=== PATIENT | female | born 1980 | race Caucasian/White ===

== ENCOUNTER 2017-09-20 12:03 | Emergency (ER) | payer OTHER | END 2017-09-20 12:47 | disposition home or self-care (01) | LOC: ERS 12:03 | DX: J02.9 Acute pharyngitis, unspecified (principal); G43.909 Migraine, unspecified, not intractable, without status migrainosus; F32.9 Major depressive disorder, single episode, unspecified | CPT/HCPCS: 87081; 87430; 99283 ==

== ENCOUNTER 2018-05-10 18:07 | Emergency (ER) | payer OTHER ==
[2018-05-10] MEDS ORDERED: Dexamethasone 10 MG/ML VIAL ONE (19:32)
[2018-05-10] MEDS ORDERED: Ketorolac Tromethamine 30 MG/ML VIAL ONE ×2 (19:32→19:36)
[2018-05-10] MEDS ORDERED: Acetaminophen 500 MG TAB ONE (19:32)
--- NOTE | 2018-05-10 19:49 | RAD ---
PORTABLE CHEST: 05/10/18 HISTORY: Shortness of breath and congestion. No comparison. The lungs are well aerated. There is some patchy density in the left lower lung which could potential ly represent mild infiltrate. This is poorly evaluated on this portable projection. The heart and mediastinum unremarkable. IMPRESSION: Question infiltrate in the left lower lung. Upright PA and lateral views of chest is recommended to e valuate for pneumonia. POS: [facility]
== END 2018-05-10 21:05 | disposition home or self-care (01) ==
LOC: ERS 18:07
DX: J02.9 Acute pharyngitis, unspecified (principal); J32.9 Chronic sinusitis, unspecified; F32.9 Major depressive disorder, single episode, unspecified
CPT/HCPCS: 71045; 87081; 87430; 96372; J1100; J1885

== ENCOUNTER 2024-07-14 11:59 | Outpatient (CLI) | payer BC | END 2024-07-14 12:00 | disposition home or self-care (01) | LOC: ULT 11:59 | PROVIDERS: ATTEND Physician Assistant Medical | DX: R74.8 Abnormal levels of other serum enzymes (principal); R93.2 Abnormal findings on diagnostic imaging of liver and biliary tract | CPT/HCPCS: 76705 ==

== ENCOUNTER 2024-11-04 07:58 | Outpatient (CLI) | payer BC ==
[2024-11-04] MEDS ORDERED: Iopamidol 370 76% 100 ML VIAL ONE (09:22)
== END 2024-11-04 07:59 | disposition home or self-care (01) ==
LOC: CT 07:58
PROVIDERS: ATTEND Physician Assistant Medical
DX: K21.9 Gastro-esophageal reflux disease without esophagitis (principal); K50.90 Crohn's disease, unspecified, without complications; R74.8 Abnormal levels of other serum enzymes; R11.2 Nausea with vomiting, unspecified; Z98.890 Other specified postprocedural states
CPT/HCPCS: 74178

== ENCOUNTER 2025-07-08 11:00 | Inpatient (IN) | payer BC ==
[2025-07-12] MEDS ORDERED: Acetaminophen 325 MG TAB ONE (11:48)
[2025-07-12] MEDS ORDERED: Heparin 5,000 UNITS/ML VIAL ONE (11:48)
[2025-07-12] MEDS ORDERED: metroNIDAZOLE 500 MG (100 mL) BAG ONE (11:49)
[2025-07-12] MEDS ORDERED: CEFAZOLIN 2 GM VIAL ONE (11:49)
[2025-07-12] MEDS ORDERED: PROPOFOL 40 ML ONE (13:02)
[2025-07-12] MEDS ORDERED: Rocuronium Bromide 10 MG/ML (10ML VIAL) ONE (13:04)
[2025-07-12] MEDS ORDERED: Lidocaine 1% PF 5 ML VIAL ONE (13:04)
[2025-07-12] MEDS ORDERED: fentaNYL PF 100 MCG/2 ML SYRINGE ONE ×2 (13:47→15:31)
[2025-07-12] MEDS ORDERED: SUGAMMADEX SODIUM 200 MG/2 ML VIAL ONE (14:38)
[2025-07-12] MEDS ORDERED: Ondansetron PF 4 MG/2 ML Vial ONE (15:00)
[2025-07-12] MEDS ORDERED: Ondansetron PF 4 MG/2 ML Vial IVP PRN (15:49)
[2025-07-12] MEDS ORDERED: hydrALAZINE 20 MG/ML VIAL SLOW IVP PRN (15:49)
[2025-07-12] MEDS ORDERED: Acetaminophen 325 MG TAB PO PRN (15:50)
[2025-07-12] MEDS ORDERED: HYDROcodone/Acetaminophen 5/325 mg Tablet PO PRN (15:52)
[2025-07-12] MEDS: Gabapentin 100 MG CAP PO SCH (21:43)
[2025-07-12] MEDS: HYDROcodone/Acetaminophen 5/325 mg Tablet PO PRN (21:44)
[2025-07-12 23:40] VITALS: BMI 44.0
[2025-07-13] MEDS: Ketorolac Tromethamine 30 MG (1 mL) VIAL IVP SCH (04:49)
[2025-07-13 04:54] LABS: #Basophils Less than 0.03 10x3/uL (0.0-0.2); #Eosinophils Less than 0.03 10x3/uL (0.0-0.7); #Monocytes 0.83 10x3/uL (0.11-0.59); #Neutrophils 8.96 10x3/uL (1.40-6.50); %Basophils 0.2 % (0.0-1.0); %Eosinophils 0.1 % (0.0-10.0); %Lymphocytes 16.6 % (21.0-51.0); %Monocytes 7.0 % (0.0-10.0); %Neutrophils 75.7 % (42.0-75.0); Hematocrit 39.0 % (36.0-47.0); Hemoglobin 12.6 g/dL (12.0-16.0); Mean Corpuscular Hemoglobin 29.1 pg (27.0-31.0); Mean Corpuscular Volume 90.1 fL (78.0-98.0); Platelet Count 280 10x3/uL (130-400); Red Blood Cell (RBC) Count 4.33 mill/uL (4.20-5.40); White Blood Cell (WBC) Count 11.83 10x3/uL (4.8-10.8)
[2025-07-13 05:21] LABS: Anion Gap 12 mmol/L (10-20); BUN (Urea Nitrogen) 10 mg/dL (7.0-18.7); Calc. Creatinine Clearance 166 mL/min (70-130); Calcium 8.0 mg/dL (7.8-10.44); Carbon Dioxide 20 mmol/L (22-29); Chloride 107 mmol/L (98-107); Glucose 108 mg/dL (70-105); Potassium 3.3 mmol/L (3.5-5.1); Sodium 136 mmol/L (136-145)
[2025-07-13] MEDS: Enoxaparin 40 MG (0.4 mL) SYRINGE SC SCH (10:50)
[2025-07-13] MEDS: BuPROPion XL 150 MG ER.TAB PO SCH (10:50)
[2025-07-13] MEDS: Milk Of Magnesia 30 ML UDCUP PO SCH (18:14)
[2025-07-14 11:47] VITALS: BP 129/86; TEMP 98.2
== END 2025-07-14 16:10 | disposition home or self-care (01) | DRG 330 ==
LOC: EDSTATUS 07-12 11:00 → SURG A 07-12 11:33 → SURG B 07-12 20:19
PROVIDERS: ADMIT Surgery; ATTEND Surgery
PROC: 0DTE4ZZ Resection of Large Intestine, Percutaneous Endoscopic Approach (ICD-10-PCS; principal; 2025-07-12)
PROC: 8E0W4CZ Robotic Assisted Procedure of Trunk Region, Percutaneous Endoscopic Approach (ICD-10-PCS; 2025-07-12)
DX: K50.012 Crohn's disease of small intestine with intestinal obstruction (principal); Z68.41 Body mass index [BMI] 40.0-44.9, adult; F32.A Depression, unspecified; Z98.890 Other specified postprocedural states; Z79.899 Other long term (current) drug therapy; E66.01 Morbid (severe) obesity due to excess calories
CPT/HCPCS: 36415; 36416; 80048; 85025; 88309; J1100; J1644; J1650; J1885; J2250; J2704; S2900